=== PATIENT | male | born 1995 | race Two or more races ===

== ENCOUNTER 2018-05-03 06:24 | Day surgery (SDC) | payer BC ==
--- NOTE | 2018-05-02 20:46 | Pre-op HX & Phy Repo 2 SIG ---
DATE OF ADMISSION: 05/03/2018 DATE OF SURGERY: May 03, 2018. PREOPERATIVE DIAGNOSIS: Retinal dialysis with macular hole and retinal detachment, right eye. 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 This came about after . He had a previous retinal tear repaired with laser in December of this year. His left eye has remained benign. MEDICAL HISTORY: Negative according to the patient. ALLERGIC: To sulfa. SOCIAL HISTORY: He does not smoke and is a current some day drinker. PHYSICAL EXAMINATION: Best vision at the time of the visit was 20/25 with correction in the right eye 20/30 in the left with pressures of 10/14. Confrontation mckeon showed nasal and inferior field loss on the right. The left was full. The anterior segments were quiet in either eye. Fundus exam of the right eye showed a retinal detachment extending from the 6:30 to 2:30 positions with extension temporally to the posterior pole, but not top within the macula itself. A large dialysis was seen from 6:30 to 10 and a small horseshoe tear was suspected at the 12:30 position. Faint epiretinal membrane was seen overlying the macula. A previously treated tear was seen at the equator at about the 5 o'clock position. There was extensive tobacco dust and vitreous haze. The left fundus showed scattered vitreous floaters, but no tears. There was a significant area of light without pressure at the 11 o'clock position. ASSESSMENT: Retinal dialysis with retinal detachment, right eye. PLAN: The plan is to perform a pars plana vitrectomy with scleral buckle endolaser and probable silicone oil injection in the right eye. The risks and benefits of surgery gone over with the patient including potential for infection, inability to repair the retina, development of PDR or severe traction which could cause the operation to fail, cataract formation, the need for removal of the silicone oil, and the possibility of loss of the eye. The risk of anesthesia was discussed. The patient understands and consents to the surgery, which will be performed on tomorrow morning. Jimmy Leary M.D. DR: Tariq JOB#: [id number] CC:
[2018-05-03] VITALS (10 sets, daily range): BP systolic 127–156; BP diastolic 66–88
[~2018-05-03] VITALS: Ht 172.7 cm; Wt 79.4 kg
[~2018-05-03 06:24] MED LIST: Pred Forte 1% Opth Susp 1ml RIGHT EYE ONE
[2018-05-03] MEDS ORDERED: Povidone-Iodine 5% opth solution ONE (07:05)
[2018-05-03] MEDS ORDERED: Kenalog-10 5ml Inj ONE (07:05)
[2018-05-03] MEDS ORDERED: Sodium Hyaluronate 10 mg/ml 0.85ml ONE (07:05)
[2018-05-03] MEDS ORDERED: Bupivacaine 0.75% 30ml vial INJ ONE (07:05)
[2018-05-03] MEDS ORDERED: Lidocaine 2% MPF 5ml Vial INJ ONE (07:05)
[2018-05-03] MEDS ORDERED: Kenalog-40 1ml Vial ONE (07:05)
[2018-05-03] MEDS ORDERED: Maxitrol Opth Oint 3.5gm ONE (07:05)
[2018-05-03] MEDS ORDERED: BSS 500ml btl ONE (07:05)
[2018-05-03] MEDS ORDERED: BSS 15ml BTL ONE (07:05)
[2018-05-03] MEDS ORDERED: Tetracaine 0.5% Opth 4ml Soln ONE (07:05)
[2018-05-03] MEDS ORDERED: EPINEPHrine 1mg/1ml Amp ONE (07:06)
--- NOTE | 2018-05-03 07:43 | Pre-Procedure Note/Attestation ---
Pre-Procedure Note/Attestation Complete Prior to Procedure Planned Procedure: right Procedure Narrative: PPVV, scleral buckle, endolaser, membrane peel, silicone oil injection Right eye Indications for Procedure Pre-Operative Diagnosis: Retinal detachment with large dialysis Right eye Attestation I attest that I discussed the nature of the procedure; its benefits; risks and complications; and alternatives (and the risks and benefits of such alternatives ), prior to the procedure, with the patient (or the patient's legal order entry representative). I attest that, if there was a reasonable possibility of needing a blood transfusion, the patient (or the patient's legal order entry representative) was given the [place] Department of Health Services standardized written summary, pursuant to the [place] Blood Safety Act ([place] Health and Safety Code # 1645, as amended). I attest that I re-evaluated the patient just prior to the surgery and that there has been no change in the patient's H&P, except as documented below: Jimmy Leary MD May 03, 2018 07:42
[2018-05-03] MEDS ORDERED: Pred Forte 1% Opth Susp 1ml ONE (07:50)
[2018-05-03] MEDS: Flurbiprofen 0.03% Opth Sol 2.5ml RIGHT EYE SCH ×3 (07:56→08:19)
[2018-05-03] MEDS: Cyclopentolate 1% Opth Sol 2ml RIGHT EYE SCH ×3 (07:56→08:19)
[2018-05-03] MEDS: Vigamox Opth Soln 3ml RIGHT EYE SCH ×3 (07:56→08:20)
[2018-05-03] MEDS: Phenylephrine 2.5% Op 2ml Soln RIGHT EYE SCH ×3 (07:56→08:19)
--- NOTE | 2018-05-03 08:33 | Anethesia Preoperative Eval ---
Anesthesia Pre-op PMH/ROS General Date of Evaluation: May 03, 2018 Time of Evaluation: 08:55 Anesthesiologist: Glenys Rangel ASA Score: ASA 1 Mallampati Score Class I : Soft palate, uvula, fauces, pillars visible Class II: Soft palate, uvula, fauces visible Class III: Soft palate, base of uvula visible Class IV: Only hard plate visible Mallampati Classification: Class I Surgeon: Gibran Diagnosis: RIGHT eye retinal detachment Surgical Procedure: RIGHT eye pa plana vitrectomy, scleral buckeling Anesthesia History: none Family History: no anesthesia problems Allergies: Coded Allergies: No Known Allergies (Unverified , 05/02/18) Medications: see eMAR Patient NPO?: Yes NPO Date: May 03, 2018 NPO Time: 00:00 Past Medical History Cardiovascular: Denies: HTN, CAD, MT, valve dz, arrhythmia, other Pulmonary: Reports: asthma - childhood Gastrointestinal/Genitourinary: Denies: GERD, CRI, ESRD, other Neurologic/Psychiatric: Denies: dementia, CVA, depression/anxiety, TIA, other Endocrine: Denies: DM, hypothyroidism, steroids, other HEENT: Reports: other - RIGHT eye retinal detachment, boxing injury; Denies: cataract (L), cataract (R), glaucoma, [place] (L), [place] (R) Hematology/Immune: Denies: anemia, DVT, bleeding disorder, other Musculoskeletal/Integumentary: Denies: OA, RA, DJD, DDD, edema, other PMH Narrative: as above PSxH Narrative: wisdom teeth extractions Anesthesia Pre-op Phys. Exam Physician Exam Last Vital Signs Date Time Temp Pulse Resp B/P (MAP) Pulse Ox O2 Delivery O2 Flow Rate FiO2 05/03/18 08:13 Room Air 05/03/18 08:09 97.9 58 18 141/88 99 Constitutional: NAD Neurologic: CN 2-12 intact Cardiovascular: RRR Respiratory: CTA Gastrointestinal: S/NT/ND Airway Exam Mallampati Score: Class I MO: full Neck: FROM TMD: > 3 FB ROM: full Teeth: intact Dentures: no upper, no lower Anesthesia Pre-op A/P Studies Pre-op Studies: EKG - SB Risk Assessment & Plan Assessment: AA 1 ok to proceed Plan: GA Status Change Before Surgery: No Pre-Antibiotics Given Within 1 Hr of Incision: No Koempel,Glenys ELECTRICAL EQUIPMENT TECHNICIAN May 03, 2018 08:33
[2018-05-03] MEDS ORDERED: Neosporin Oph Soln 5ml Btl ONE (08:50)
[2018-05-03] MEDS ORDERED: fentaNYL 100 mcg/2 mL IV ONE ×2 (08:55→09:02)
[2018-05-03] MEDS ORDERED: Midazolam 2mg/2ml Inj ONE (08:55)
[2018-05-03] MEDS ORDERED: Propofol 200mg/20ml IV ONE (08:55)
[2018-05-03] MEDS ORDERED: LR 1000ml ONE (09:00)
[2018-05-03] MEDS ORDERED: Ketorolac 30mg Inj ONE (09:00)
[2018-05-03] MEDS ORDERED: Dexamethasone 4mg/ml vial ONE (09:00)
[2018-05-03] MEDS ORDERED: Hydromorphone 0.5mg/0.5ml inj IVP PRN (09:45)
[2018-05-03] MEDS ORDERED: Metoclopramide 10mg/2ml Inj IVP PRN (09:45)
--- NOTE | 2018-05-03 11:51 | Brief Operative Note ---
Immediate Post Operative Note Operative Note Chief Complaint: Shadow in vision R eye Pre-op Diagnosis: Retinal detachment with large dialysis Right eye Procedure: PPV, Endolaser 1349, scleral buckle 240, 287, 70, cryo 8 spots, silicone oil, corneal epithelium removal. paracentesis Right eye+ Post-op Diagnosis: same as pre-op Anesthesia: general Specimen: none Complications: none Condition: stable Fluids: per anesthesia Estimated Blood Loss: none Drains: none Implant(s) used?: Yes - Scleral Jimmy Meyer MD May 03, 2018 11:51
--- NOTE | 2018-05-03 11:56 | Immediate Post-Op Evaluation ---
Immediate Post-Op Evalulation Immediate Post-Op Evalulation Procedure: RIGHT eye pars plana vitrectomy, scleral buckle Date of Evaluation: May 03, 2018 Time of Evaluation: 11:56 IV Fluids: LR 1000 ML Blood Pressure Systolic: 137 - 8066 Blood Pressure Diastolic: 66 Pulse Rate: 80 Respiratory Rate: 24 O2 Sat by Pulse Oximetry: 98 Temperature (Fahrenheit): 99.0 Pain Score (1-10): 0 Nausea: No Vomiting: No Complications none Patient Status: reacts, patent, extubated Hydration Status: adequate Given Within 1 Hr of Incision: Glenys Tellez CRNA May 03, 2018 11:56
[2018-05-03] MEDS ORDERED: Norco 5mg/325mg tab ORAL PRN (12:00)
--- NOTE | 2018-05-03 14:10 | 48 Hour Post Anesthesia Eval ---
Post Anesthesia Evaluation Procedure: RIGHT eye pars plana vitrectomy, scleral buckle Date of Evaluation: May 03, 2018 Time of Evaluation: 13:05 Blood Pressure Systolic: 152 0: 80 Pulse Rate: 87 Respiratory Rate: 18 Temperature (Fahrenheit): 98.7 O2 Sat by Pulse Oximetry: 97 Airway: patent Nausea: No Vomiting: No Pain Intensity: 2 Hydration Status: adequate Cardiopulmonary Status: stable Mental Status/LOC: patient returned to baseline Follow-up Care/Observations: per opthalmology Post-Anesthesia Complications: none Follow-up care needed: ready to discharge Glenys Rangel CRNA May 03, 2018 14:10
--- NOTE | 2018-05-08 11:15 | Operative Note - Dictated ---
DATE OF OPERATION: 05/03/2018 PREOPERATIVE DIAGNOSIS: Retinal detachment with large dialysis, right eye. POSTOPERATIVE DIAGNOSIS: Retinal detachment with large dialysis, right eye. PROCEDURES: 1. Pars plana vitrectomy. 2. Scleral buckle. 3. Endolaser. 4. Cryopexy. 5. Removal of corneal epithelium. 6. Paracentesis. 7. Silicone oil injection, right eye. SURGEON: Jimmy Leary M.D. MATCHER: None. ANESTHESIA: LMA general. JUSTIFICATION FOR SURGERY: This 22-year-old gentleman sustained a large dialysis and retinal detachment during a sparring match sometime ago. He was found to have a macula-off retinal detachment. BRIEF NOTE: The patient was brought to the operating room, placed on OR table in supine position. After a time-out was performed and agreed upon by the staff, general LMA anesthesia was induced by the anesthesiologist. Retrobulbar and Van Lint blocks were then done to limit postoperative pain and to limit intraoperative need for anesthetic. He was then prepped and draped in the normal manner. A lid speculum inserted into the right eye. A 360-degree peritomy was cut with relaxation incisions at 3 and 9 o'clock positions. The muscles were isolated, in turn, on white and black ties. The quadrants were explored and found to be without scleral thinning. Indirect ophthalmoscope was used to examine the retina. A large dialysis was noted temporally from the 7 to 10:30 positions. The edges of this dialysis were marked. A pre-existing retinal hole that was surrounded by laser was noted at the 5 o'clock position and there was localized subretinal fluid adjacent to this with a suspected hole at 4:30. This area was also marked. The cryoprobe was then brought into the field and the anterior most portion of the dialysis was gently treated with roughly eight spots of cryo from end-to-end. The sutures were then placed for a scleral buckle with mattress sutures of 5-0 nylon being placed roughly 6 mm apart in the temporal quadrants and 3 mm apart nasally. These were all centered at 15 mm from the limbus. At this juncture, a 240 band was selected and placed about the eye beneath the muscles and the mattress sutures and secured with a 70 sleeve in the superonasal quadrant. A segment of 287 [employer] was then placed temporally beneath the 240 band going from roughly the 6:30 position to the 11 o'clock position. The sutures were then tied and rotated posteriorly and Van tightened leaving roughly a moderate elevation. The ends were left slightly long for later adjustment. Preparation was then made for the vitrectomy. Using the 23-gauge trocar system, cannulas were placed in all except infranasal quadrant. Infusion secured inferotemporally. Vitrectomy was begun posterior to the lens taking care to avoid contact. A central core vitrectomy was done. Elevation of the posterior hyaloid was then completed and this was also removed. Vitrectomy was carried further peripherally with shaving leaving a small vitreous skirt. When the vitrectomy was completed, Perfluoron was introduced into the eye to migrate the fluid anteriorly through the break. Once this was completed, an air-fluid exchange was performed to flatten the retina with the Perfluoron being removed simultaneously. With small pockets of fluid migrated posteriorly, but not into the macula, the Endolaser was brought to the eye and a power of 0.3 shaw, duration 0.2 seconds, a total of 1349 lesions were applied surrounding the large dialysis and treating the localized break at the 5 o'clock position. No other lesions were seen. At this juncture, the corneal epithelium was removed for better visualization. A paracentesis was also done to remove a small air bubble that had migrated anteriorly. With the view now clear, silicone oil was then injected while evacuating the air. Roughly a 90% fill was made. The eye was left soft and normotensive. The cannulas superiorly were then removed and the sclerotomy was closed with 8-0 Vicryl suture. The infusion cannula was then removed and similar closure was performed. All mattress sutures were removed and the buckle trimmed at this height, which was felt to be acceptable. Conjunctiva and Tenon's capsule were pulled up and secured with 6-0 plain catgut. Subconjunctival Decadron and gentamicin were then injected and atropine drops, prednisolone drops, moxifloxacin drops, and Maxitrol ointment was instilled. The eye was patched and shielded. The patient taken to recovery in excellent condition. There were no complications. The patient was to be placed in a face-down position over the next 24 hours. Jimmy Leary M.D. DR: CHARISSA JOB#: [id number] CC: Jimmy Leary M.D.; Fax#: [phone]
== END 2018-05-03 13:30 | disposition home or self-care (01) ==
LOC: SUR 06:24
DX: H33.04 Retinal detachment with retinal dialysis (principal)
CPT/HCPCS: 67108; J0171; J1100; J1885; J2250; J2405; J2704; J3010; J3470; J3490

== ENCOUNTER 2018-07-19 06:25 | Day surgery (SDC) | payer BC ==
--- NOTE | 2018-07-18 19:30 | Pre-op HX & Phy Repo 2 SIG ---
DATE OF ADMISSION: 07/19/2018 DATE OF SURGERY: 07/19/2018 PREOPERATIVE DIAGNOSIS: Status post retinal detachment repair with silicone oil, right eye. BRIEF NOTE: This is a second [facility] admission for the patient who is a 22-year-old gentleman, who presented with a retinal detachment in the right eye that was repaired in early April of 2018. He is admitted for removal of the silicone oil. PAST OCULAR HISTORY: Remarkable for laser treatment done on the same eye in December of 2017. MEDICAL HISTORY: Negative. ALLERGIES: He has an allergy to sulfa. PHYSICAL EXAMINATION: Best vision at the time of admission was 20/30 with pinholes in the right eye and 20/40 in the left. The pressure on the right was 17. The anterior segments were quiet. Fundus exam of the right eye showed a roughly an 85% silicone oil fill. There was a peripheral scleral buckle. The retina appeared all attached with the macula being attached as well. The left fundus showed an area of white without pressure from 10 to 12, but no tears. General physical examination will be updated by Dr. Lou. ASSESSMENT: Status post retinal detachment and repair of right eye. PLAN: The plan is to perform a pars plana vitrectomy with silicone oil removal and endolaser as needed. Possible gas bubble will be placed. The risks and benefits of surgery gone over the patient with potential infection, hemorrhage, cataract formation, and remote possibility of loss of the eye. The risk of anesthesia was discussed. The patient understands and consents to surgery, which will be performed on tomorrow morning. Jimmy Leary M.D. DR: HARINDER JOB#: [id number] CC:
[~2018-07-19] VITALS: Ht 172.7 cm; Wt 83.9 kg
[2018-07-19] VITALS (10 sets, daily range): BP systolic 122–144; BP diastolic 58–83
[~2018-07-19 06:25] MED LIST changes: -Pred Forte 1% Opth Susp 1ml RIGHT EYE ONE; +Pred Forte 1% Opth Susp 1ml RIGHT EYE SCH
[2018-07-19] MEDS ORDERED: SIMBRINZA 1%-0.28 ML RIGHT EYE (06:55)
[2018-07-19] MEDS ORDERED: KETOROLAC TROMET5 M1 RIGHT EYE (06:55)
[2018-07-19] MEDS ORDERED: LUMIFY2.5 ML RIGHT EYE (06:55)
[2018-07-19] MEDS ORDERED: TRAVATAN Z5 ML RIGHT EYE (06:55)
[2018-07-19] MEDS: Cyclopentolate 1% Opth Sol 2ml RIGHT EYE SCH ×3 (06:56→07:05)
[2018-07-19] MEDS: Phenylephrine 2.5% Op 2ml Soln RIGHT EYE SCH ×3 (06:56→07:06)
[2018-07-19] MEDS: Flurbiprofen 0.03% Opth Sol 2.5ml RIGHT EYE SCH ×3 (06:56→07:06)
[2018-07-19] MEDS: Vigamox Opth Soln 3ml RIGHT EYE SCH ×3 (06:56→07:05)
[2018-07-19] MEDS ORDERED: BSS 15ml BTL ONE (07:10)
[2018-07-19] MEDS ORDERED: Sodium Hyaluronate 10 mg/ml 0.85ml ONE (07:10)
[2018-07-19] MEDS ORDERED: Maxitrol Opth Oint 3.5gm ONE (07:10)
[2018-07-19] MEDS ORDERED: Pred Forte 1% Opth Susp 1ml ONE (07:10)
[2018-07-19] MEDS ORDERED: Kenalog-40 1ml Vial ONE (07:10)
[2018-07-19] MEDS ORDERED: Bupivacaine 0.75% 30ml vial INJ ONE (07:10)
[2018-07-19] MEDS ORDERED: Kenalog-10 5ml Inj ONE (07:10)
[2018-07-19] MEDS ORDERED: BSS 500ml btl ONE (07:10)
[2018-07-19] MEDS ORDERED: EPINEPHrine 1mg/1ml Amp ONE (07:10)
[2018-07-19] MEDS ORDERED: Tetracaine 0.5% Opth 4ml Soln ONE (07:10)
[2018-07-19] MEDS ORDERED: Lidocaine 2% MPF 5ml Vial INJ ONE (07:10)
[2018-07-19] MEDS ORDERED: Dexamethasone 4mg/ml vial ONE (07:10)
[2018-07-19 07:23] LABS: BASOPHILS % (AUTO) 1.4 % (0.0-2.0); EOSINOPHILS % (AUTO) 1.3 % (0.0-3.0); HEMATOCRIT 48.3 % (42.0-52.0); HEMOGLOBIN 16.6 G/DL (14.2-18.0); LYMPHOCYTES % (AUTO) 24.1 % (20.0-45.0); MEAN CORPUSCULAR VOLUME 85 FL (80-99); MONOCYTES % (AUTO) 11.2 % (1.0-10.0); PLATELET COUNT 211 K/UL (150-450); RED BLOOD COUNT 5.67 M/UL (4.70-6.10); RED CELL DISTRIBUTION WIDTH 11.7 % (11.6-14.8); WHITE BLOOD COUNT 8.6 K/UL (4.8-10.8)
[2018-07-19 07:25] LABS: ANION GAP 10 mmol/L (5-15); BLOOD UREA NITROGEN 22 mg/dL (7-18); CALCIUM 9.6 MG/DL (8.5-10.1); CARBON DIOXIDE 23 MMOL/L (21-32); CHLORIDE 104 MMOL/L (98-107); CREATININE 1.2 MG/DL (0.55-1.30); POTASSIUM 4.1 MMOL/L (3.5-5.1); SODIUM 137 MMOL/L (136-145)
[2018-07-19] MEDS ORDERED: Povidone-Iodine 5% opth solution ONE (07:33)
--- NOTE | 2018-07-19 07:36 | Pre-Procedure Note/Attestation ---
Pre-Procedure Note/Attestation Complete Prior to Procedure Planned Procedure: right Procedure Narrative: PPV, removal of silicone oil, endolaser, possible gas-fluid exchange Right eye Indications for Procedure Pre-Operative Diagnosis: S/P retinal detachment repair with silicone oil,. Right eye Attestation I attest that I discussed the nature of the procedure; its benefits; risks and complications; and alternatives (and the risks and benefits of such alternatives ), prior to the procedure, with the patient (or the patient's legal business representative). I attest that, if there was a reasonable possibility of needing a blood transfusion, the patient (or the patient's legal business representative) was given the [place] Department of Health Services standardized written summary, pursuant to the [place] Blood Safety Act ([place] Health and Safety Code # 1645, as amended). I attest that I re-evaluated the patient just prior to the surgery and that there has been no change in the patient's H&P, except as documented below: Jimmy Leary MD Jul 19, 2018 07:36
[2018-07-19] MEDS ORDERED: Norco 5mg/325mg tab ORAL PRN ×2 (07:45→08:59)
--- NOTE | 2018-07-19 08:28 | Anethesia Preoperative Eval ---
Anesthesia Pre-op PMH/ROS General Date of Evaluation: Jul 19, 2018 Time of Evaluation: 09:04 Anesthesiologist: Tiffanie ASA Score: ASA 1 Mallampati Score Class I : Soft palate, uvula, fauces, pillars visible Class II: Soft palate, uvula, fauces visible Class III: Soft palate, base of uvula visible Class IV: Only hard plate visible Mallampati Classification: Class I Surgeon: Gibran Diagnosis: Status post retinal detachment repair with Silicone OD Surgical Procedure: Slicone Oil Removal OD Anesthesia History: none Family History: no anesthesia problems Allergies: Coded Allergies: SULFA (SULFONAMIDE ANTIBIOTICS) (Verified Allergy, Unknown, 07/18/18) Medications: see eMAR Patient NPO?: Yes Past Medical History PSxH Narrative: Vitrectomy OD Anesthesia Pre-op Phys. Exam Physician Exam Last Vital Signs Date Time Temp Pulse Resp B/P (MAP) Pulse Ox O2 Delivery O2 Flow Rate FiO2 07/19/18 06:58 97.5 52 18 134/80 98 Room Air Constitutional: NAD Neurologic: CN 2-12 intact Cardiovascular: RRR Respiratory: CTA Gastrointestinal: S/NT/ND Airway Exam Mallampati Score: Class I MO: full ROM: full Teeth: intact Anesthesia Pre-op A/P Labs Hematology Test 07/19/18 06:50 White Blood Count 8.6 K/UL (4.8-10.8) Red Blood Count 5.67 M/UL (4.70-6.10) Hemoglobin 16.6 G/DL (14.2-18.0) Hematocrit 48.3 % (42.0-52.0) Mean Corpuscular Volume 85 FL (80-99) Mean Corpuscular Hemoglobin 29.3 PG (27.0-31.0) Mean Corpuscular Hemoglobin Concent 34.4 G/DL (32.0-36.0) Red Cell Distribution Width 11.7 % (11.6-14.8) Platelet Count 211 K/UL (150-450) Mean Platelet Volume 7.2 FL (6.5-10.1) Neutrophils (%) (Auto) 62.0 % (45.0-75.0) Lymphocytes (%) (Auto) 24.1 % (20.0-45.0) Monocytes (%) (Auto) 11.2 % (1.0-10.0) H Eosinophils (%) (Auto) 1.3 % (0.0-3.0) Basophils (%) (Auto) 1.4 % (0.0-2.0) Chemistry Test 07/19/18 06:50 Sodium Level 137 MMOL/L (136-145) Potassium Level 4.1 MMOL/L (3.5-5.1) Chloride Level 104 MMOL/L (98-107) Carbon Dioxide Level 23 MMOL/L (21-32) Anion Gap 10 mmol/L (5-15) Blood Urea Nitrogen 22 mg/dL (7-18) H Creatinine 1.2 MG/DL (0.55-1.30) Estimat Glomerular Filtration Rate > 60 mL/min (>60) Glucose Level 90 MG/DL (74-106) Calcium Level 9.6 MG/DL (8.5-10.1) Risk Assessment & Plan Assessment: ASA 1 Plan: GA Status Change Before Surgery: No Uli Moreno MD Jul 19, 2018 08:28
--- NOTE | 2018-07-19 08:33 | Immediate Post-Op Evaluation ---
Immediate Post-Op Evalulation Immediate Post-Op Evalulation Procedure: Slicone Oil Removal OD Date of Evaluation: Jul 19, 2018 Time of Evaluation: 10:37 IV Fluids: 750 LR Blood Products: 0 Estimated Blood Loss: 1 Urinary Output: 0 Blood Pressure Systolic: 132 Blood Pressure Diastolic: 83 Pulse Rate: 56 Respiratory Rate: 16 O2 Sat by Pulse Oximetry: 99 Temperature (Fahrenheit): 98 Pain Score (1-10): 1 Nausea: No Vomiting: No Complications 0 Patient Status: awake, reacts, patent, none Hydration Status: adequate Uli Moreno MD Jul 19, 2018 08:33
--- NOTE | 2018-07-19 08:33 | 48 Hour Post Anesthesia Eval ---
Post Anesthesia Evaluation Procedure: Slicone Oil Removal OD Date of Evaluation: Jul 19, 2018 Time of Evaluation: 12:43 Blood Pressure Systolic: 128 0: 74 Pulse Rate: 63 Respiratory Rate: 18 Temperature (Fahrenheit): 98.4 O2 Sat by Pulse Oximetry: 99 Airway: patent Nausea: No Vomiting: No Pain Intensity: 1 Cardiopulmonary Status: Stable Follow-up Care/Observations: 0 Post-Anesthesia Complications: 0 Follow-up care needed: ready to discharge Uli Moreno MD Jul 19, 2018 08:33
[2018-07-19] MEDS ORDERED: fentaNYL 100 mcg/2 mL IV PRN (08:57)
[2018-07-19] MEDS ORDERED: Hydromorphone 0.5mg/0.5ml inj IVP PRN (08:58)
[2018-07-19] MEDS ORDERED: HYDROcodone/Acetamin 7.5/325 tab ORAL PRN (08:59)
[2018-07-19] MEDS ORDERED: oxyCODONE HCL/Acetaminophen 5/325mg ORAL PRN (08:59)
[2018-07-19] MEDS ORDERED: LORazepam Inj 2mg/ml 1ml IV PRN (09:00)
[2018-07-19] MEDS ORDERED: Midazolam 2mg/2ml Inj IVP PRN (09:00)
[2018-07-19] MEDS ORDERED: Sterile Water Irrig 1000ml IRRIG ONE (09:00)
[2018-07-19] MEDS ORDERED: Lidocaine 1% MPF 10mg/ml 5ml ONE (09:00)
[2018-07-19] MEDS ORDERED: Propofol 200mg/20ml IV ONE (09:00)
[2018-07-19] MEDS ORDERED: LR 1000ml ONE (09:00)
[2018-07-19] MEDS ORDERED: NS Irrig 1000ml ONE ×2 (09:00)
[2018-07-19] MEDS ORDERED: Metoclopramide 10mg/2ml Inj IVP PRN (09:01)
[2018-07-19] MEDS ORDERED: Meperidine 50mg/ml Inj(FOR RIGORS ONLY) IVP PRN (09:02)
[2018-07-19] MEDS ORDERED: LR 1000ml 1,000 ML IVLG SCH (09:02)
[2018-07-19] MEDS ORDERED: DiphenhydrAMINE 50mg/ml Inj IVP PRN (09:02)
[2018-07-19] MEDS ORDERED: Atropine Sulfate 0.4mg/ml inj IVP PRN (09:02)
--- NOTE | 2018-07-19 10:25 | Brief Operative Note ---
Immediate Post Operative Note Operative Note Chief Complaint: Poor focus Pre-op Diagnosis: S/P retinal detachment repair with silicone oil,. Right eye Procedure: PPV, removal of silicone oil, paracentesis, Endolaser 644 spots, air-fluid exchange Right eye Post-op Diagnosis: same as pre-op Surgeon: opal Anesthesiologist: Tiffanie Anesthesia: MAC Specimen: none Complications: none Condition: stable Fluids: per anesthesia Estimated Blood Loss: none Drains: none Implant(s) used?: No Jimmy Leary MD Jul 19, 2018 10:25
--- NOTE | 2018-07-19 15:15 | Operative Note - Dictated ---
DATE OF OPERATION: 07/19/2018 PREOPERATIVE DIAGNOSIS: Status post retinal detachment repair with silicone oil, right eye. POSTOPERATIVE DIAGNOSIS: Status post retinal detachment repair with silicone oil, right eye. PROCEDURES: 1. Pars plana vitrectomy. 2. Removal of silicone oil. 3. Paracentesis with removal of anterior chamber bubbles. 4. Endolaser. 5. Air-fluid exchange. SURGEON: Jimmy Leary M.D. BASS VIOL REPAIRER: None. ANESTHESIA: Location with sedation. ANESTHESIOLOGIST: Uli Moreno M.D. JUSTIFICATION FOR SURGERY: This 22-year-old gentleman underwent a complicated retinal detachment repair two months ago and is admitted for silicone oil removal. BRIEF NOTE: The patient was brought to the operative room, placed on OR table in supine position. After a time-out was performed and agreed upon by the staff, and initial monitoring secured by anesthesia, retrobulbar and Van Lint blocks given in the standard way. When the blocks taken effect, he was prepped and draped in normal manner. A lid speculum was inserted into the right eye. Using a 23-gauge trocar system, cannulas were placed in all except infranasal quadrant. Infusion secured inferotemporally. Using the silicone oil infusion cannula, the large silicone bubbles were removed. Smaller bubbles that had entered the anterior chamber through weakened zonules were evacuated by making a paracentesis at the 12 o'clock position and flushing and suctioning the bubbles away with balanced salt solution. A 10-0 nylon suture was used to close the paracentesis. The endolaser was brought to the eye and reinforcement was done along the edge of the temporal buccal and along the edge of the previously lasered lesion down at the 7 o'clock position. This went without complication with the macula and remainder of the retina remaining totally flat. Scleral depression showed no additional pathology. An air-fluid exchange was then performed to roughly 90% fill. The cannulas were removed from the eye and only the superotemporal sclerotomy was found necessary to be closed with an 8-0 Vicryl suture. The remaining sclerotomies were self-sealing. Subconjunctival Decadron and gentamicin were then injected and Maxitrol and atropine ointments were instilled. The eye was patched and shielded. The patient taken to recovery in excellent condition, there were no complications. Jimmy Leary M.D. DR: HARINDER JOB#: [id number] CC:
== END 2018-07-19 11:50 | disposition home or self-care (01) ==
LOC: SUR 06:25
DX: H33.21 Serous retinal detachment, right eye (principal); Z88.2 Allergy status to sulfonamides
CPT/HCPCS: 36415; 67121; 80048; 85025; J0171; J1100; J2250; J2704; J3470; J3490; 94003; 94150